=== PATIENT | male | born 1935 | race Native Hawaiian/Other Pacific Islander ===

== ENCOUNTER 2023-02-15 21:44 | Emergency (ER) | payer OTHER ==
[~2023-02-15] VITALS: Ht 182.9 cm; Wt 86.6 kg
[2023-02-15 22:01] LABS: PLATELET COUNT 176 K/uL (142-355)
[2023-02-15 22:04] LABS: POTASSIUM 4.4 mmol/L (3.6-5.2)
[2023-02-16] MEDS ORDERED: BAYER CHEWABLE81 MG PO (06:37)
[2023-02-16] MEDS ORDERED: ESCI10TA PO (06:38)
[2023-02-16] MEDS ORDERED: LEVO0.0723 PO (06:39)
[2023-02-16] MEDS ORDERED: RISP0.25 PO (06:40)
[2023-02-16] MEDS ORDERED: SIMV20TA2 PO (06:41)
[2023-02-16] MEDS ORDERED: DIOVAN HCT160 MG/25 PO (06:42)
[2023-02-16] MEDS ORDERED: VITAMIN D50000 UNIT PO (06:43)
[2023-02-16] MEDS ORDERED: WARF3TAB12 PO (06:44)
[2023-02-16] MEDS ORDERED: DIVA125C PO (06:46)
[2023-02-16] MEDS ORDERED: GEMFIBROZIL PO (06:48)
[2023-02-16] MEDS ORDERED: MEMA10TA2 PO (06:49)
[2023-02-16] MEDS ORDERED: LORA0.5T17 PO (06:53)
[2023-02-16] MEDS ORDERED: HALO5INJ3 IM (06:54)
== END 2023-02-15 22:49 | disposition other institution (70) ==
LOC: ED 21:44
PROVIDERS: Family Medicine
DX: F29 Unspecified psychosis not due to a substance or known physiological condition (principal); Z02.79 Encounter for issue of other medical certificate
CPT/HCPCS: 80053; 85027; 87635; 93005; 99283; U0003